=== PATIENT | female | born 1965 | race Hispanic/Latino ===

== ENCOUNTER 2017-08-09 18:40 | Emergency (ER) | payer SELFPAY ==
[2017-08-09] MEDS ORDERED: EPINEPHRINE 1 MG/ML AMPULE ONE (19:19)
[2017-08-09] MEDS ORDERED: SODIUM CHLORIDE 0.9% 1000ML 1,000 ML IV ONE (19:19)
[2017-08-09] MEDS ORDERED: DiphenhydrAMINE HCL 50 MG/ML VIAL ONE (19:19)
[2017-08-09] MEDS ORDERED: FAMOTIDINE/PF 20 MG/2 ML VIAL IV ONE (19:20)
[2017-08-09] MEDS ORDERED: METHYLPREDNISOLONE SOD SUCC 125MG/2ML VIAL ONE (19:20)
== END 2017-08-09 22:04 | disposition home or self-care (01) ==
LOC: EDH 18:40
DX: T78.3XXA Angioneurotic edema, initial encounter (principal); E11.9 Type 2 diabetes mellitus without complications; I10 Essential (primary) hypertension; E78.5 Hyperlipidemia, unspecified; X58.XXXA Exposure to other specified factors, initial encounter
CPT/HCPCS: 96361; 96374; 96375; 99285; J0171; J1200; J2930; J3490; J7030